=== PATIENT | male | born 1970 | race Caucasian/White ===

== ENCOUNTER 2025-02-08 14:19 | Inpatient (IN) | payer OTHER ==
[2025-02-08 15:16] VITALS: BMI 36.1
[2025-02-08] MEDS ORDERED: LOPERAMIDE HCL 2 MG CAPSULE PO PRN (15:52)
[2025-02-08] MEDS ORDERED: ACETAMINOPHEN 325 MG TABLET (FP) PO PRN (15:52)
[2025-02-08] MEDS ORDERED: MAG HYDROX/AL HYDROX/SIMETH 30 ML UNIT-DOSE CUP PO PRN (15:52)
[2025-02-08] MEDS ORDERED: guaiFENesin 600 MG TABLET.ER (FP) PO PRN (15:52)
[2025-02-08] MEDS ORDERED: IBUPROFEN 600 MG TABLET (FP) PO PRN (15:52)
[2025-02-08] MEDS ORDERED: IBUPROFEN 400 MG TABLET (FP) PO PRN (15:52)
[2025-02-08] MEDS ORDERED: BISMUTH SUBSALICYLATE 524 MG/30 ML PO PRN (15:52)
[2025-02-08] MEDS ORDERED: ONDANSETRON *ODT* 4 MG TABLET SL PRN (15:52)
[2025-02-08] MEDS ORDERED: METHOCARBAMOL 500 MG TABLET PO PRN (15:52)
[2025-02-08] MEDS ORDERED: BENZONATATE 200 MG CAPSULE PO PRN (15:52)
[2025-02-08] MEDS ORDERED: hydrOXYzine PAMOATE 25 MG CAPSULE (FP) PO PRN (15:52)
[2025-02-08] MEDS ORDERED: BENZOCAINE/MENTHOL (CHLORASEPTIC ) LOZENGE MM PRN (15:52)
[2025-02-08] MEDS ORDERED: POLYETHYLENE GLYCOL (HEALTHYLAX) 3350 17 GM PACKET PO PRN (15:52)
[2025-02-08] MEDS ORDERED: DICYCLOMINE HCL 10 MG CAPSULE PO PRN (15:52)
[2025-02-08] MEDS ORDERED: MAGNESIUM HYDROX 2400MG/30ML ORAL SUSPENSION 30 ML CUP PO PRN (15:52)
[2025-02-08] MEDS ORDERED: NALOXONE (NARCAN) HCL 4 MG/0.1 ML SPRAY NS PRN (15:52)
[2025-02-08] MEDS: PRENATAL VITAMINS W/ FOLIC ACID TABLET (FP) PO SCH (17:51)
[2025-02-08] MEDS: ACAMPROSATE CALCIUM 333 MG TABLET.DR PO SCH (22:41)
[2025-02-08] MEDS: MELATONIN 5 MG TABLETS PO SCH (22:42)
[2025-02-08] MEDS: THIAMINE 100 MG TABLET PO SCH (22:42)
[2025-02-09 09:50] LABS: MCHC 32.3 g/dl (32.3-36.5); MEAN CELL VOLUME 99.4 fl (79.0-92.2); MEAN PLT VOLUME 11.1 fl (9.4-12.4); RDW 15.0 % (12.2-16.1)
[2025-02-09 10:14] LABS: GLUCOSE,RANDOM 267 mg/dL (74-106)
[2025-02-09 10:15] LABS: TOT PROT 6.4 g/dl (6.4-8.2)
[2025-02-09 10:16] LABS: CO2 23 mmol/L (21-32)
[2025-02-09 10:18] LABS: ALK PHOS 187 U/L (40-150)
[2025-02-09 10:20] LABS: SGOT/AST 121 U/L (5-34); SGPT/ALT 68 U/L (0-55)
[2025-02-09 11:25] LABS: CREATININE 0.67 mg/dL (0.55-1.3)
[2025-02-09] MEDS: LACTULOSE 20 GM/30 ML UDC (FOR ORAL USE ONLY) PO SCH (22:26)
[2025-02-09] MEDS: ACAMPROSATE CALCIUM 333 MG TABLET.DR PO SCH (22:26)
[2025-02-10 16:51] VITALS: BP 153/86; PULSE 67; RESP 17; TEMP 97.6
== END 2025-02-10 17:53 | disposition home or self-care (01) | DRG 897 ==
LOC: YASAS 14:19 → Y6N 16:58
PROVIDERS: ADMIT Neuromusculoskeletal Medicine & OMM; ATTEND Allergy & Immunology
PROC: HZ2ZZZZ Detoxification Services for Substance Abuse Treatment (ICD-10-PCS; principal; 2025-02-08)
DX: F10.20 Alcohol dependence, uncomplicated (principal); F14.10 Cocaine abuse, uncomplicated; F12.10 Cannabis abuse, uncomplicated; F17.210 Nicotine dependence, cigarettes, uncomplicated; G47.30 Sleep apnea, unspecified; I11.0 Hypertensive heart disease with heart failure; I50.9 Heart failure, unspecified; E11.9 Type 2 diabetes mellitus without complications; Z79.84 Long term (current) use of oral hypoglycemic drugs; K21.9 Gastro-esophageal reflux disease without esophagitis; Z88.0 Allergy status to penicillin
CPT/HCPCS: 36415; 80053; 80307; 82140; 85027; 86780; 93005; 93010